=== PATIENT | female | born 1935 | race Caucasian/White ===

== ENCOUNTER 2017-05-01 10:36 | Inpatient (IN) ==
[2017-05-01] MEDS ORDERED: Acetaminophen 325 MG TABLET PO ONE (11:04)
[2017-05-01] MEDS ORDERED: *HR* HYDROcodone/Acet 5/325 mg TABLET PO ONE ×2 (11:04→12:06)
--- NOTE | 2017-05-01 11:07 | Emergency Department Note ---
Disposition Clinical Impression: Fracture of humeral head, left, closed Qualifiers: Encounter type: initial encounter Qualified Code(s): S42.292A - Other displaced fracture of upper end of left humerus, initial encounter for closed fracture Closed fracture of neck of left humerus Qualifiers: Encounter type: initial encounter Qualified Code(s): S42.212A - Unspecified displaced fracture of surgical neck of left humerus, initial encounter for closed fracture Closed nondisplaced fracture of fifth left metatarsal bone Qualifiers: Encounter type: initial encounter Qualified Code(s): S92.355A - Nondisplaced fracture of fifth metatarsal bone, left foot, initial encounter for closed fracture Disposition: Admitted As Inpatient Condition: Fair Time of Disposition: 12:37 Fall HPI - General Chief Complaint: ED Fall Stated Complaint: fall Time Seen by Provider: 05/01/17 10:58 Source: patient, family Nursing Notes Reviewed: Yes Vital Signs Reviewed: Yes - History of Present Illness HPI Narrative: Patient is an 81-year-old female complains of left shoulder pain and left ankle and foot pain secondary to a fall that happened 1.5 hours ago. Patient states she was walking in her kitchen when she rolled her left ankle and fell onto her left shoulder. She has hematoma on the right hand as well that is tender to palpation. Patient states she has a history of osteoporosis and is on aspirin daily. - Related Data Allergies Allergy/AdvReac Type Severity Reaction Status Date / Time No Known Allergies Allergy Verified 05/01/17 12:43 All systems ED: reviewed and negative except as stated. Review of Systems: As Per HPI Constitutional: Denies: fever Eyes: Denies: vision change ENT ED: Denies: congestion Cardiovascular: Denies: chest pain, syncope Respiratory: Denies: cough, dyspnea, wheezes Gastrointestinal: Denies: abdominal pain, nausea Genitourinary: Denies: urgency, dysuria Musculoskeletal: Denies: back pain Fall PMH - Past Medical History Medical history: Reports: diabetes, hyperlipidemia, hypertension - Social History Smoking Status: Never smoker Alcohol use: Reports: none Drug use: Reports: none Physical Exam Vital Signs Temperature 98.4 F 05/01/17 10:36 Pulse Rate 90 05/01/17 10:36 Respiratory Rate 18 05/01/17 10:36 Blood Pressure 148/54 05/01/17 10:36 O2 Sat by Pulse Oximetry 98 05/01/17 10:36 Temperature 98.4 F 05/01/17 10:36 Pulse Rate 90 05/01/17 10:36 Respiratory Rate 18 05/01/17 10:36 Blood Pressure 148/54 05/01/17 10:36 O2 Sat by Pulse Oximetry 98 05/01/17 10:36 Oxygen Delivery Oxygen Delivery Room Air 81-year-old female who is alert and oriented 3 and in no acute distress. Patient is very spunky. Patient has pain to palpation at the left shoulder which shows shows visible malalignment patient has good distal pulses and good range of motion and functionality of left hand when compared to the right hand.. Patient has ecchymosis to the right hand ventral aspect at the base of the thumb. Patient has tenderness at the base of the fifth metacarpal partial left foot. Patient has no rib tenderness to palpation. - General Limitations: no limitations General appearance: alert - Head Head exam: atraumatic, normocephalic, normal inspection - Eye Eye exam: Present: normal appearance, PERRL, EOMI - ENT ENT exam: normal exam, normal oropharynx, mucous membranes moist - Neck Neck exam: Present: normal inspection, full ROM, trachea midline - Chest Chest inspection: Present: normal inspection, symmetric chest wall rise - Respiratory Respiratory exam: Present: normal lung sounds bilaterally - Cardiovascular Cardiovascular exam: Present: regular rate, normal rhythm, normal heart sounds - Abdominal Exam Abdominal exam: Present: soft, Non-Tender. Absent: tenderness, distention, guarding, rebound, rigidity - Expanded Lower Extremity Exam Hip/Pelvis exam: Present: normal inspection, full ROM. Absent: tenderness, swelling - Neurological Exam Neurological exam: Present: alert, oriented X3 Course Vital Signs Temperature 98.4 F 05/01/17 10:36 Pulse Rate 90 05/01/17 10:36 Respiratory Rate 18 05/01/17 10:36 Blood Pressure 148/54 05/01/17 10:36 O2 Sat by Pulse Oximetry 98 05/01/17 10:36 Temperature 98.4 F 05/01/17 10:36 Pulse Rate 80 05/01/17 12:50 Respiratory Rate 20 05/01/17 12:50 Blood Pressure 143/68 05/01/17 12:50 O2 Sat by Pulse Oximetry 98 05/01/17 12:50 Oxygen Delivery Oxygen Delivery Room Air Fall - MDM Narrative Medical decision making narrative: Ground-level fall no loss of consciousness secondary to rolling left ankle: Patient's fracture of left humeral head and neck with 50% displacement. No angulation. Patient also has Stoll fracture of the fifth metatarsal of the left foot. All of the imaging negative for fractures. Pain control initially with 5/325 [place]. The patient pain still 6/10 patient will have a IV started and begin pain control with fentanyl. Plan is for admission after discussion with Dr. Davidson of orthopedics. The patient accepts this is for admission. Patient will be placed in a sling and swath of the left upper extremity and a posterior splint of the left lower extremity. Dr. Taylor the hospitalist who accepted patient for admission at 1233 hrs. - Radiology Data Radiology results reviewed: Yes I reviewed the patient's radiology results. Cervical Spine CT 05/01/17 10:58 IMPRESSION: No acute abnormality of the cervical spine. No acute intracranial abnormality. D/ / Lianne Ding Cha, MD / Lianne Ding Cha, MD Interpreting Provider: Lianne Ding Cha, MD Head CT 05/01/17 10:58 IMPRESSION: No acute abnormality of the cervical spine. No acute intracranial abnormality. D/ / Lianne Ding Cha, MD / Lianne Ding Cha, MD Interpreting Provider: Lianne Ding Cha, MD Ankle X-Ray 05/01/17 10:58 IMPRESSION: Base of 5th metatarsal fracture. Soft tissue edema. Calcaneal spurs. D/ / 05/01/2017 12:07:00 Sunday Forrest MD / chelsey Interpreting Provider: Sunday Forrest MD Cervical Spine CT 05/01/17 10:58 IMPRESSION: No acute abnormality of the cervical spine. No acute intracranial abnormality. D/ / Lianne Ding Cha, MD / Lianne Ding Cha, MD Interpreting Provider: Lianne Ding Cha, MD Hand X-Ray 05/01/17 10:58 IMPRESSION: 1. Osteopenia without fracture. 2. CPPD. 3. Osteoarthritis. D/ / 05/01/2017 12:05:49 Sunday Forrest MD / chelsey Interpreting Provider: Sunday Forrest MD Head CT 05/01/17 10:58 IMPRESSION: No acute abnormality of the cervical spine. No acute intracranial abnormality. D/ / Lianne Ding Cha, MD / Lianne Ding Cha, MD Interpreting Provider: Lianne Ding Cha, MD Humerus X-Ray 05/01/17 10:58 IMPRESSION: Humeral head and neck fracture. D/ / 05/01/2017 12:04:11 Sunday Forrest MD / chelsey Interpreting Provider: Sunday Forrest MD Shoulder X-Ray 05/01/17 10:58 IMPRESSION: Comminuted humeral head and neck fracture. D/ / 05/01/2017 11:59:33 Sunday Forrest MD / vee Interpreting Provider: Sunday Forrest MD Chest X-Ray 05/01/17 11:02 IMPRESSION: No acute cardiopulmonary process. D/ / 05/01/2017 12:03:14 Sunday Forrest MD / chelsey Interpreting Provider: Sunday Forrest MD Attestation Statement - Attestation Attestation: I, John Marrero DO, examined this patient [id number] and my medical decision-making was reviewed with Dr. Anand Huff, Resident Physician. I agree with the documented findings, disposition and treatment plan as described except to the extent set forth below. Please see my progress notes for details. No critical care applied to this patient
[2017-05-01] MEDS ORDERED: *HR* FentaNYL (PF) 100 MCG/2 ML VIAL IVP ONE (12:14)
[2017-05-01] MEDS ORDERED: 0.9 % Sodium Chloride 1,000 ML IVC ONE (12:14)
--- NOTE | 2017-05-01 12:25 | Emergency Department Note ---
START Narrative - START START: 81-year-old female presents emergency room a mechanical fall home. Her left ankle gave out on her when she is walking. Patient fell sideways landing on her left shoulder and hitting her head. She also hurt her right foot. Imaging is confirmatory for humeral head and neck fracture on the left side as well as a Stoll fracture on the right foot. Patient has no acute signs of bleed in the brain or cervical spine injury this time. Patient does live at home by herself. She denies any other preceding symptoms including tachycardia palpitations chest pain shortness of breath headache vision changes nausea vomiting or diarrhea. May concern in presentation as a mechanical fall. Because of the patient's history as well as her home by herself recommendation for admission will be established at this time considering she is unable to walk. No other visible signs of trauma. This time. Patient is on aspirin denies any other blood thinners. Consultation was developed station examiner orthopedics further advice and recommendations. No other acute issues at this time. See detailed documentation of the medical intervention, consultations, disposition, physical exam and admission process and the resident physician's note.
--- NOTE | 2017-05-01 12:59 | Internal Med History&Physical ---
Date of Encounter: 05/01/17 Time of Encounter: 12:56 Assessment and Plan (1) HTN (hypertension) Current visit: Yes Status: Chronic chronic will continue home meds Qualifiers: Hypertension type: essential hypertension Qualified Code(s): I10 - Essential (primary) hypertension (2) Fracture of humeral head, left, closed Current visit: Yes Status: Acute due to accidental fall no syncope or loss of consciousness Qualifiers: Encounter type: initial encounter Qualified Code(s): S42.292A - Other displaced fracture of upper end of left humerus, initial encounter for closed fracture (3) Closed nondisplaced fracture of fifth left metatarsal bone Current visit: Yes Status: Acute ortho yo see later Qualifiers: Encounter type: initial encounter Qualified Code(s): S92.355A - Nondisplaced fracture of fifth metatarsal bone, left foot, initial encounter for closed fracture (4) Diabetes Current visit: Yes Status: Chronic will resume home meds and place on sliding scale Qualifiers: Diabetes mellitus type: type 2 Diabetes mellitus complication status: with unspecified complications Diabetes mellitus 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 Pena is a 81 year old female Patient with history of osteoporosis, hypertension, high cholesterol, diabetes, patient had accidental fall at home and twisted left ankle and then fell landing on left shoulder The patient presented emergency room with pain of the shoulder x-ray shows comminuted humeral head and neck fracture of the left shoulder. Also nondisplaced fracture of the fifth metatarsal. Orthopedic has been spoken to and was to see patient today patient admitted to [facility] Hospital service will be seen by orthopedic surgery. She is not having any chest pain no shortness of breath no palpitation did not have syncope no loss of consciousness. Past Med Surg Social Fam HX - Past Medical History Medical history: diabetes, hyperlipidemia, hypertension - Social History Smoking Status: Never smoker Alcohol use: none Drug use: none Internal Medicine - H&P: Meds Amlodipine Besylate [Amlodipine Besylate] 10 mg PO DAILY 05/01/17 [History] Atorvastatin [Lipitor] 40 mg PO HS 05/01/17 [History] Cetirizine HCl [Cetirizine HCl] 10 mg PO DAILY 05/01/17 [History] Cholecalciferol (Vitamin D3) [Vitamin D] 2,000 unit PO DAILY 05/01/17 [History] Escitalopram [Lexapro] 10 mg PO DAILY 05/01/17 [History] Loratadine [Claritin] 10 mg PO DAILY 05/01/17 [History] Losartan/Hydrochlorothiazide [Losartan-Hctz 100-12.5 mg Tab] 1 tab PO DAILY [History] Omeprazole [PriLOSEC] 40 mg PO DAILY 05/01/17 [History] SitaGLIPtin [Januvia] 100 mg PO DAILY 05/01/17 [History] metFORMIN [Glucophage] 500 mg PO BID 05/01/17 [History] 3 Allergy/AdvReac Type Severity Reaction Status Date / Time No Known Allergies Allergy Verified 05/01/17 12:43 All Systems PM: A 10-system review of systems was performed and is negative for pertinent findings except as documented above in the HPI. - Constitutional Constitutional: no chills, no fever(s), no night sweats - EENT Eyes: no change in vision, no discharge, no pain, no photophobia Ears: no ear discharge, no ear pain, no tinnitus Nose, mouth and throat: no dysphagia, no nasal discharge, no neck pain, no sore throat - Cardiovascular Cardiovascular ROS IM: no chest pain, no diaphoresis, no dyspnea, no lightheadedness, no palpitations, no syncope - Respiratory Respiratory: no cough, no dyspnea, no wheezing, no excessive phlegm production - Gastrointestinal Gastrointestinal: no abdominal pain, no diarrhea, no hematemesis, no hematochezia, no melena, no nausea, no vomiting - Musculoskeletal Musculoskeletal ROS IM: other - Integumentary Integumentary IM: no rash, no unusual bruising - Constitutional Vitals: Temp Pulse Resp BP Pulse Ox 98.4 F 80 20 143/68 98 05/01/17 10:36 05/01/17 12:50 05/01/17 12:50 05/01/17 12:50 05/01/17 12:50 - Eye Eye exam: Present: PERRL, conjuntiva pink, sclera anicteric Pupils: Present: PERRL - Neck Neck exam general surgery: Present: supple, trachea midline. Absent: lymphadenopathy - Respiratory Respiratory exam: Present: CTAB. Absent: accessory muscle use, rales, rhonchi, wheezes - Cardiovascular Cardiovascular exam: Present: RRR, +S1, +S2. Absent: diastolic murmur, gallop, rubs, systolic murmur - GI/Abdominal GI/Abdominal exam: Present: normal bowel sounds, soft, no peritoneal signs. Absent: distended, tenderness - Extremities Exam Extremities exam: Present: tenderness
[2017-05-01] MEDS ORDERED: *HR* Morphine 2 MG/ML SYRINGE IVP PRN (13:06)
[2017-05-01] MEDS ORDERED: *HR* OxyCODONE Immed Rel 5 MG TABLET PO PRN (13:06)
[2017-05-01] MEDS ORDERED: Naloxone 0.4 MG/ML INJ IVP PRN (13:06)
[2017-05-01] MEDS ORDERED: Ondansetron 4 MG/2 ML VIAL IVP PRN (13:06)
[2017-05-01] MEDS ORDERED: *HR* Dextrose 50 % in Water (Syg) 50 ML SYRINGE IVP PRN (13:10)
[2017-05-01] MEDS ORDERED: Dextrose Gel 15 GM PO PRN ×2 (13:10)
[2017-05-01] MEDS ORDERED: D5% in Water 1,000 ML IVC PRN (13:10)
--- NOTE | 2017-05-01 14:55 | Orthopedic Consult Note ---
Date of Encounter: 05/01/17 Time of Encounter: 14:52 Assessment and Plan (1) Fracture of humeral head, left, closed Current Visit: Yes Status: Acute Continue sling and swath. We will discuss with Dr. León in surgical fixation is needed. Qualifiers: Encounter type: initial encounter Qualified Code(s): S42.292A - Other displaced fracture of upper end of left humerus, initial encounter for closed fracture (2) Closed nondisplaced fracture of fifth left metatarsal bone Current Visit: Yes Status: Acute Most likely nonoperative. We will obtain further x-rays today as only ankle x- rays were done. Patient is a diabetic and has a left shoulder mini injury also. May benefit from percutaneous internal fixation. Will discuss with Dr. gaston. Qualifiers: Encounter type: initial encounter Qualified Code(s): S92.355A - Nondisplaced fracture of fifth metatarsal bone, left foot, initial encounter for closed fracture History of Present Illness Chief complaint: Left shoulder and left ankle/foot pain HPI: Ms. Pena is a 81 year old female who states she fell after rolling the left ankle at home this morning. Patient brought to the emergency room. She sustained a left shoulder proximal fracture and also a left foot fifth metatarsal base fracture. Patient says she did hit her head which fell but did not black out. She reports pain to the right hand also. Past medical history significant for diabetes. Past Med Surg Social Fam HX - Past Medical History Medical history: diabetes, hyperlipidemia, hypertension - Social History Smoking Status: Never smoker Alcohol use: none Drug use: none Medications and Allergies Amlodipine Besylate [Amlodipine Besylate] 10 mg PO DAILY 05/01/17 [History] Atorvastatin [Lipitor] 40 mg PO HS 05/01/17 [History] Cetirizine HCl [Cetirizine HCl] 10 mg PO DAILY 05/01/17 [History] Cholecalciferol (Vitamin D3) [Vitamin D] 2,000 unit PO DAILY 05/01/17 [History] Escitalopram [Lexapro] 10 mg PO DAILY 05/01/17 [History] Loratadine [Claritin] 10 mg PO DAILY 05/01/17 [History] Losartan/Hydrochlorothiazide [Losartan-Hctz 100-12.5 mg Tab] 1 tab PO DAILY [History] Omeprazole [PriLOSEC] 40 mg PO DAILY 05/01/17 [History] SitaGLIPtin [Januvia] 100 mg PO DAILY 05/01/17 [History] metFORMIN [Glucophage] 500 mg PO BID 05/01/17 [History] 3 Allergy/AdvReac Type Severity Reaction Status Date / Time No Known Allergies Allergy Verified 05/01/17 12:43 All Systems Reviewed: A 10-system review of systems was performed and is negative for pertinent findings except as documented above in the HPI. Physical Exam - Constitutional Vitals: Temp Pulse Resp BP Pulse Ox 98.4 F 80 18 148/74 98 05/01/17 10:36 05/01/17 12:50 05/01/17 14:24 05/01/17 14:24 05/01/17 12:50 General appearance IM: A&O X 3, pleasant, no acute distress Exam: Head: Normocephalic, mild swelling in forehead but no tenderness no bruising Right upper extremity: Mild bruising and dose most was webspace with tenderness and soft tissue but no no tenderness or bones, full range of motion without pain , distress intact. Left upper extremity: Shoulder immobilizer in place. Neurovascularly intact in hand. Left lower extremity: Posterior splint in place, mild tenderness at lateral aspect of foot Results - Labs Labs: All other labs normal. - Diagnostic results Shoulder x-ray: image reviewed (Displaced proximal humerus fracture) Ankle/Foot x-ray: image reviewed (5th MT base fx) Consult Discharge Plan - Plan Referrals: Deanna Miranda CNP [Primary Care Provider] -
[2017-05-01] MEDS: 0.9 % Sodium Chloride 1,000 ML IVC SCH (15:33)
[2017-05-01] MEDS ORDERED: Insulin LISPRO 300 UNITS/3 ML VIAL SQ SCH (21:00)
[2017-05-02 04:13] LABS: Basophils # 0.1 K/mcL (0.0-0.2); Basophils % 0.8 %; Eosinophils # 0.1 K/mcL (0.0-0.6); Eosinophils % 1.1 %; Hematocrit 31.9 % (35.3-44.9); Hemoglobin 10.4 g/dL (11.5-15.4); Immature Granulocytes % 0.5 % (0-4); Lymphocytes # 2.3 K/mcL (0.6-4.6); Lymphocytes % 28.7 %; Mean Corpuscular HGB Conc 32.6 g/dL (31.6-35.5); Mean Corpuscular Hemoglobin 29.5 pg (28.0-33.3); Mean Corpuscular Volume 90.4 fL (83.0-100.0); Mean Platelet Volume 11.7 fL (9.4-12.4); Monocytes # 0.9 K/mcL (0.0-1.3); Monocytes % 10.8 %; Neutrophils # 4.6 K/mcL (1.6-8.9); Platelet Count 211 K/mcL (140-400); Red Blood Count 3.53 M/mcL (3.82-4.97); Red Cell Distribution Width 13.4 % (11.5-14.5); Segmented Neutrophils % 58.1 %
[2017-05-02 04:23] LABS: Alanine Aminotransferase 21 Units/L (0-55); Albumin/Globulin Ratio 0.9 (1.1-2.2); Alkaline Phosphatase 96 Units/L (38-126); Aspartate Amino Transferase 23 Units/L (5-34); BUN/Creatinine Ratio 20 (6-26); Bilirubin,Total 0.7 mg/dL (0.2-1.2); Blood Urea Nitrogen 15 mg/dL (7-20); Calcium 9.2 mg/dL (8.6-10.8); Carbon Dioxide 22 mEq/L (19-29); Chloride 108 mEq/L (98-109); Cholesterol 117 mg/dL (< 200); Globulin 3.3 g/dL (2.4-3.5); Glucose 121 mg/dL (70-99); HDL Cholesterol 39 mg/dL (40-59); LDL Cholesterol,Calculated 54 mg/dL (0-99); Magnesium 1.5 mg/dL (1.6-2.6); Osmolality,Calculated 290 (280-300); Potassium 3.6 mEq/L (3.5-4.5); Sodium 139 mEq/L (136-145); Total Protein 6.3 g/dL (6.0-8.3); Triglycerides 120 mg/dL (< 150); eGFR For African Americans > 60 (> 60); eGFR For Non-African Americans > 60 (> 60)
[2017-05-02] MEDS: 0.9 % Sodium Chloride 1,000 ML IVC SCH (05:22)
[2017-05-02] MEDS ORDERED: *HR* Enoxaparin 40 MG/0.4 ML SYRINGE SQ SCH (06:00)
--- NOTE | 2017-05-02 06:56 | Orthopedics Progress Note ---
Date of Encounter: 05/02/17 Time of Encounter: 06:55 Subjective Interval history: Patient seen this morning with displaced left proximal humerus fracture. Discussed different treatment options. Recommendation is for open reduction internal fixation. We reviewed the risks and benefits as well as recovery. All questions were answered. The patient agreed to this treatment plan and appeared to understand the plan is reviewed. Objective Vital signs: Vital Signs Temp Pulse Resp BP Pulse Ox 05/02/17 06:23 98.6 F 80 18 152/71 93 05/02/17 03:33 98.9 F 74 18 133/69 97 05/01/17 23:14 99.5 F 82 18 169/72 99 05/01/17 20:07 98.7 F 78 18 159/69 95 05/01/17 15:36 98.5 F 81 18 145/67 97 05/01/17 14:24 18 148/74 Intake and Output 05/01/17 05/01/17 05/02/17 15:59 23:59 07:59 Intake Total 60 / 60 1000 / 1000 Output Total 450 / 450 400 / 400 Balance -390 / -390 600 / 600 Intake: IV Fluids 1000 / 1000 0.9 % Sodium Chloride 1,000 ML 1000 / 1000 @ 75 mls/hr IVC .[id number] SOFIA Rx #:[id number] Oral 60 / 60 Output: Urine 450 / 450 400 / 400 Other: Meal Dinner Percent of Meal Consumed 100% Blood Glucose* 187 125 - Labs CBC & BMP: 05/02/17 03:24 05/02/17 03:24 Labs: Abnormal lab results RBC 3.53 M/mcL (3.82-4.97) L 05/02/17 03:24 Hgb 10.4 g/dL (11.5-15.4) L 05/02/17 03:24 Hct 31.9 % (35.3-44.9) L 05/02/17 03:24 Glucose 121 mg/dL (70-99) H 05/02/17 03:24 POC Glucose 187 (58-89) H 05/01/17 20:11 Magnesium 1.5 mg/dL (1.6-2.6) L 05/02/17 03:24 Albumin 3.0 g/dL (3.5-5.0) L 05/02/17 03:24 Albumin/Globulin Ratio 0.9 (1.1-2.2) L 05/02/17 03:24 HDL Cholesterol 39 mg/dL (40-59) L 05/02/17 03:24 Consult Discharge Plan - Plan Referrals: Deanna Miranda CNP [Primary Care Provider] -
[2017-05-02] MEDS ORDERED: *HR* Morphine 2 MG/ML SYRINGE IVP PRN ×3 (08:19→19:00)
[2017-05-02] MEDS: Insulin LISPRO 300 UNITS/3 ML VIAL SQ SCH ×3 (08:41→23:00)
[2017-05-02] MEDS ORDERED: Loratadine 10 MG TABLET PO SCH ×2 (09:00)
[2017-05-02] MEDS ORDERED: hydroCHLOROthiazide 25 MG TABLET PO SCH (09:00)
[2017-05-02] MEDS ORDERED: *HR* SitaGLIPtin 100 MG TABLET PO SCH (09:00)
[2017-05-02] MEDS ORDERED: Cholecalciferol (D-3) 1,000 UNIT TABLET PO SCH (09:00)
[2017-05-02] MEDS ORDERED: amLODIPine 5 MG TABLET PO SCH (09:00)
--- NOTE | 2017-05-02 09:13 | Internal Med Progress Note ---
<Ana Maria Coles - Last Filed: 05/02/17 15:12> Date of Encounter: 05/02/17 Time of Encounter: 09:10 - Assessment and plan (1) Fracture of humeral head, left, closed Current Visit: Yes Status: Acute Assessment and plan: plan for ORIF by Dr. León today Qualifiers: Encounter type: initial encounter Qualified Code(s): S42.292A - Other displaced fracture of upper end of left humerus, initial encounter for closed fracture (2) Closed fracture of neck of left humerus Current Visit: Yes Status: Acute Qualifiers: Encounter type: initial encounter Qualified Code(s): S42.212A - Unspecified displaced fracture of surgical neck of left humerus, initial encounter for closed fracture (3) Closed nondisplaced fracture of fifth left metatarsal bone Current Visit: Yes Status: Acute Qualifiers: Encounter type: initial encounter Qualified Code(s): S92.355A - Nondisplaced fracture of fifth metatarsal bone, left foot, initial encounter for closed fracture (4) Diabetes Current Visit: Yes Status: Chronic Assessment and plan: On sliding scale with Accu-Cheks Qualifiers: Diabetes mellitus type: type 2 Diabetes mellitus complication status: with unspecified complications Diabetes mellitus exterminator helper termite insulin use: unspecified exterminator helper termite insulin use status Qualified Code(s): E11.8 - Type 2 diabetes mellitus with unspecified complications (5) HTN (hypertension) Current Visit: Yes Status: Chronic Assessment and plan: Chronic, well-controlled Continue home medications Qualifiers: Hypertension type: essential hypertension Qualified Code(s): I10 - Essential (primary) hypertension - Subjective Interval history: Patient is waiting in bed to go to surgery sometime this afternoon. Dr. León has stated he will take her this afternoon if there is a cancellation or else she will go at 5 PM. She has some mild to moderate pain in her shoulder and foot. - Constitutional Vitals: Temp Pulse Resp BP Pulse Ox 98.6 F 80 18 152/71 93 05/02/17 06:23 05/02/17 06:23 05/02/17 06:23 05/02/17 06:23 05/02/17 06:23 General appearance: Present: A&O X 3, no acute distress, answers questions appropriately - Head Head exam: Present: atraumatic, normocephalic - Eye Eye exam: Present: PERRL, conjuntiva pink, sclera anicteric Pupils: Present: PERRL - Neck Neck exam general surgery: Present: supple, trachea midline - Respiratory Respiratory exam: Present: CTAB. Absent: accessory muscle use, rales, rhonchi, wheezes - Cardiovascular Cardiovascular exam: Present: RRR, +S1, +S2. Absent: diastolic murmur, gallop, rubs, systolic murmur - GI/Abdominal GI/Abdominal exam: Present: normal bowel sounds, soft, no peritoneal signs. Absent: distended, tenderness - Extremities Exam Extremities exam: Present: warm. Absent: pedal edema, tenderness Additional comments: Left lower extremity in a posterior splint, toes are warm with good capillary refill: able to wiggle toes Left upper extremity in sling, fingers are warm with good capillary refill: able to wiggle fingers - Neurological Exam Neurological exam: Present: alert, oriented X3 - Psychiatric Psychiatric exam: Present: normal affect, normal mood - Skin Skin exam: Present: intact, normal color, warm Internal Medicine: Result - Labs CBC & Chem 7: 05/02/17 03:24 05/02/17 03:24 Labs: Short CBC 05/02/17 Range/Units 03:24 WBC 7.9 (4.3-11.1) K/mcL Hgb 10.4 L (11.5-15.4) g/dL Hct 31.9 L (35.3-44.9) % Plt Count 211 (140-400) K/mcL Neutrophils # 4.6 (1.6-8.9) K/mcL BMP 05/02/17 03:24 Sodium 139 Potassium 3.6 Chloride 108 Carbon Dioxide 22 BUN 15 Creatinine 0.76 Glucose 121 H Calcium 9.2 Cardiac Enzymes 05/01/17 05/01/17 05/02/17 Range/Units 14:06 21:02 03:24 Troponin I 0.00 0.01 0.01 (0-0.03) ng/mL Liver Function 05/02/17 Range/Units 03:24 Total Bilirubin 0.7 (0.2-1.2) mg/dL AST 23 (5-34) Units/L ALT 21 (0-55) Units/L Alkaline Phosphatase 96 (38-126) Units/L Albumin 3.0 L (3.5-5.0) g/dL - Impressions Impressions Foot X-Ray 05/01/17 14:51 IMPRESSION: Acute transverse extra-articular 5th metatarsal base fracture. D/ / Bob Varghese MD / Bob Varghese MD Interpreting Provider: Bob Varghese MD Consult Discharge Plan - Plan Referrals: Deanna Miranda CNP [Primary Care Provider] - <Jhon Pina - Last Filed: 05/02/17 18:51> Date of Encounter: 05/02/17 - Assessment and plan (1) Closed fracture of neck of left humerus Current Visit: Yes Status: Acute Qualifiers: Encounter type: initial encounter Qualified Code(s): S42.212A - Unspecified displaced fracture of surgical neck of left humerus, initial encounter for closed fracture (2) Closed nondisplaced fracture of fifth left metatarsal bone Current Visit: Yes Status: Acute Qualifiers: Encounter type: initial encounter Qualified Code(s): S92.355A - Nondisplaced fracture of fifth metatarsal bone, left foot, initial encounter for closed fracture (3) Diabetes Current Visit: Yes Status: Chronic Qualifiers: Diabetes mellitus type: type 2 Diabetes mellitus complication status: without complication Diabetes mellitus exterminator helper termite insulin use: without exterminator helper termite use Qualified Code(s): E11.9 - Type 2 diabetes mellitus without complications (4) HTN (hypertension) Current Visit: Yes Status: Chronic Qualifiers: Hypertension type: essential hypertension Qualified Code(s): I10 - Essential (primary) hypertension - Constitutional Vitals: Temp Pulse Resp BP Pulse Ox 99.6 F 97 18 155/76 96 05/02/17 14:57 05/02/17 17:13 05/02/17 14:57 05/02/17 17:13 05/02/17 17:13 Internal Medicine: Result - Labs CBC & Chem 7: 05/02/17 03:24 05/02/17 03:24 Labs: Short CBC 05/02/17 Range/Units 03:24 WBC 7.9 (4.3-11.1) K/mcL Hgb 10.4 L (11.5-15.4) g/dL Hct 31.9 L (35.3-44.9) % Plt Count 211 (140-400) K/mcL Neutrophils # 4.6 (1.6-8.9) K/mcL BMP 05/02/17 03:24 Sodium 139 Potassium 3.6 Chloride 108 Carbon Dioxide 22 BUN 15 Creatinine 0.76 Glucose 121 H Calcium 9.2 Cardiac Enzymes 05/01/17 05/02/17 Range/Units 21:02 03:24 Troponin I 0.01 0.01 (0-0.03) ng/mL Liver Function 05/02/17 Range/Units 03:24 Total Bilirubin 0.7 (0.2-1.2) mg/dL AST 23 (5-34) Units/L ALT 21 (0-55) Units/L Alkaline Phosphatase 96 (38-126) Units/L Albumin 3.0 L (3.5-5.0) g/dL - Attending Attestation I examined this patient and my medical decision-making was reviewed with the Resident Physician on 05/02/17. I agree with the documented findings, disposition and treatment plan as described except to the extent set forth below. Ms Pena is currently admitted for acute humeral fracture and fracture of 5th metatarsel. She is to go to OR today. She remains moderate to high risk due to potential for worsening clinical status. Ms ePna is awaiting surgery. No fever or chills. No cough. Pain controlled at this time. Exam Alert. Comfortable Mucus membranes dry Heart reg Lungs clear I/P 1. Humeral fracture 2. Metatarsel fracture Further diagnoses and plan as above.
--- NOTE | 2017-05-02 16:27 | Anesthesia Evaluation PreOp ---
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 History: TIA Other Medical History: Diabetes Type II, GERD Anesthesia History: No Prior Anesthetic Complications, Past Anesthesia Alcohol Use: none Drug use: none Medications and Allergies Amlodipine Besylate [Amlodipine Besylate] 10 mg PO DAILY 05/01/17 [History] Atorvastatin [Lipitor] 40 mg PO HS 05/01/17 [History] Cetirizine HCl [Cetirizine HCl] 10 mg PO DAILY 05/01/17 [History] Cholecalciferol (Vitamin D3) [Vitamin D] 2,000 unit PO DAILY 05/01/17 [History] Escitalopram [Lexapro] 10 mg PO DAILY 05/01/17 [History] Loratadine [Claritin] 10 mg PO DAILY 05/01/17 [History] Losartan/Hydrochlorothiazide [Losartan-Hctz 100-12.5 mg Tab] 1 tab PO DAILY [History] Omeprazole [PriLOSEC] 40 mg PO DAILY 05/01/17 [History] SitaGLIPtin [Januvia] 100 mg PO DAILY 05/01/17 [History] metFORMIN [Glucophage] 500 mg PO BID 05/01/17 [History] 3 Allergy/AdvReac Type Severity Reaction Status Date / Time No Known Allergies Allergy Verified 05/01/17 12:43 - Meds/Allergy Pre-op Review Medications Reviewed: Yes Allergies Reviewed: Yes Beta Blockers on Current Med List: No Anesthesia Results - Labs 05/02/17 03:24 05/02/17 03:24 - Imaging EKG: report reviewed (05/02/2017 SR, NSST abnormality) Additional studies: 09/15/2012 Echo Impressions: * Normal left ventricular size and systolic function. * LVEF 65% * There is evidence of mild diastolic dysfunction of the left ventricle. * Normal right ventricular size and function. * Mildly dilated left atrium. * Trivial MR and TR. * The estimated RVSP was 27 mmHg as estimated by Doppler. * There is no pulmonary hypertension. Anesthesia Exam Vital Signs/O2 Sat/Glucose, Most Recent Temp Pulse Resp BP Pulse Ox 99.6 F 77 18 153/73 97 05/02/17 14:57 05/02/17 14:57 05/02/17 14:57 05/02/17 14:57 05/02/17 14:57 Blood Glucose* 123 Height: 5'2''/1.57 m Weight: 170 lbs/77 kg NPO (# of Hours): 8 Pain Scale: 0 Pain Scale Used: Numeric (1 - 10) - HEENT Pupil (Motor): EOMI Mallampati: II Teeth: Normal, Missing Denture Type: Upper: Complete Oral Opening: Greater than 3 - WHITING MACHINE OPERATOR LOC: Oriented WHITING MACHINE OPERATOR Motor: Normal RUE, Normal LUE, Normal RLE, Normal LLE, Normal Face WHITING MACHINE OPERATOR Sensory: Normal: RUE, LUE, RLE, LLE, Face - Cardiac Rhythm: Regular Murmur: None - Pulmonary Breath Sounds: bilateral Clear Respiratory Effort: Symmetrical Anesthesia Assess/Plan ASA Score: 3 Modified Ivelisse Scale for Level of Consciousness: Cooperative, oriented, and tranquil Anesthetic Plan: General, Regional Monitoring Plan: Standard Monitors Recovery Plan: PACU
[2017-05-02] MEDS ORDERED: *HR* Midazolam HCl 2 MG/2 ML VIAL ONE (16:36)
[2017-05-02] MEDS ORDERED: *HR* FentaNYL (PF) 100 MCG/2 ML VIAL ONE ×2 (16:36→16:45)
[2017-05-02] MEDS ORDERED: *HR* Propofol 200 MG/20 ML VIAL IVP ONE (16:36)
[2017-05-02] MEDS ORDERED: Dexamethasone 4 MG/ML VIAL ONE ×2 (16:36→16:45)
[2017-05-02] MEDS ORDERED: Ondansetron 4 MG/2 ML VIAL ONE (16:36)
[2017-05-02] MEDS ORDERED: Lidocaine -MPF 2% 2 ML VIAL ONE (16:36)
[2017-05-02] MEDS ORDERED: ROPIVACAINE HCL/PF 0.5% 30 ML VIAL ONE (16:43)
[2017-05-02] MEDS ORDERED: CeFAZolin Syringe 2,000MG/20 ML SYR IVPB ONE (16:51)
--- NOTE | 2017-05-02 17:17 | Anesthesia Procedures ---
Date of Encounter: 05/02/17 Time of Encounter: 17:00 Procedures: Anesthesia - Nerve Block Procedure Date: 05/02/17 Time: 17:00 Allergies/Adv Reactions: NKDA Pre-op Diagnosis: Fractured Left Humerous Surgical Procedure: Left Shoulder ORIF Checklist: Correct Patient Identifier, Correct procedure, History checked Correct side: Left Blood Thinner: No Monitor Applied: EKG, BP, Pulse Oximetry Supplemental Oxygen via Nasal Cannula (L/min): 2 Sedation: Fentanyl (mcg): 100 Indication: Post Op Analgesia Pre-op Neuro Deficits: No Block Type: Supraclavicular Catheter placed: No Sterile Technique: Yes Ultrasound used: Yes Anatomy identified: Yes Visual spread of Local: Yes Neuro Stimulation: No Blood on Needle Aspiration: No Smooth Injection of Local: Yes Pain with Injection of Local: No Prep: Chlorhexadine Needle: 22 x 50 mm Stimuplex Local: Ropivacaine (with decadron 4mg) Volume (cc): 30 Number of Attempts: 1 Complications: None/effective block Vitals: Last Vital Signs Temp 99.6 F 05/02/17 14:57 Pulse 97 05/02/17 17:13 Resp 18 05/02/17 14:57 BP 155/76 05/02/17 17:13 Pulse Ox 96 05/02/17 17:13
[2017-05-02] MEDS ORDERED: CeFAZolin Syr 2,000MG/20 ML 2,000 MG/20 ML SYRINGE IVPB ONE (17:24)
[2017-05-02] MEDS ORDERED: EPHEDrine 50 MG/ML VIAL ONE (17:36)
[2017-05-02] MEDS ORDERED: Albuterol 2.5 MG/3 ML NEBULIZER IH ONE (17:45)
[2017-05-02] MEDS ORDERED: Ondansetron 4 MG/2 ML VIAL IVP ONE (17:45)
[2017-05-02] MEDS ORDERED: Ringers Solution, Lactated 1,000 ML IVC SCH ×2 (17:45→19:00)
[2017-05-02] MEDS ORDERED: Naloxone 0.4 MG/ML INJ IVP PRN ×2 (17:45→19:00)
[2017-05-02] MEDS ORDERED: *HR* HYDROmorphone (PF) 1 MG/ML SYRINGE IVP PRN (17:45)
--- NOTE | 2017-05-02 18:13 | Orthopedic Operative Note ---
Date of procedure: 05/02/17 Pre-op diagnosis: Displaced left proximal humerus fracture Post-op diagnosis: same Procedure: Procedure: Left open reduction internal fixation Humerus proximal humerus Estimated blood loss: 50 cc Hardware: Synthes 3-hole proximal humeral locking plate, 9 3.5 Locking screws Operative procedure: The patient was brought to the operating room and placed on the operating room table. After general anesthesia was administered the operative arm was prepped and draped in the sterile surgical fashion The patient received IV antibiotics prior to skin incision. A standard extended deltopectoral approach was made to the humerus, the incision is made to the skin and subcutaneous tissue. Hemostasis was obtained with Bovie cautery. Using careful blunt dissection the deltopectoral interval was developed, exposing the fracture site. Using fluoroscopic assistance a Synthes 3-hole proximal humeral locking plate was approximated to the anterior lateral surface was fixed distally in compression with one 3.5 cortical screw. It was fixed proximally with 3.5 locking screws. Fixation was completed with distal fixation with 3.5 locking screws. The compression screw was exchanged for a locking screw as well. Position of the hardware as well as fracture reduction found to be acceptable on fluoroscopic exam evaluation. The PA closed the shoulder. The wound was irrigated the deltopectoral closed with a running #1 PDS suture case tissues irrigated and closed deep with 0 PDS suture superficially with 0 PDS suture was closed with zip tie patient was sterile dressing and brace. The patient was extubated, and then transferred to the recovery room in stable condition. Anesthesia: GETA Surgeon: Julio León Estimated blood loss (cc): 50 Condition: stable Disposition: PACU
[2017-05-02] MEDS ORDERED: Ringers Solution, Lactated 1,000 ML ONE (18:42)
--- NOTE | 2017-05-02 18:51 | Anesthesia Evaluation Post Op ---
Date of Encounter: 05/02/17 Time of Encounter: 18:51 - Vital Signs Vital Signs: Vital Signs/O2 Sat, Most Current Temp Pulse Resp BP Pulse Ox 99.6 F 97 18 155/76 96 05/02/17 14:57 05/02/17 17:13 05/02/17 14:57 05/02/17 17:13 05/02/17 17:13 - Lungs Lungs: Clear Ascult./Percussion - Airway Airway: Non-obstructed - Cardiovascular Regular Rate - Mental Status Mental Status: Alert & Oriented, Answers Appropriately - Pain Pain Scale: 0 Pain Scale used: Numeric (1 - 10) - Nausea Vomiting Nausea Vomiting: Not Present - Hydration Hydration: Ice chips, Has not voided - Discharge PostOp Status: Transfer Patient to floor
[2017-05-02] MEDS ORDERED: Temazepam 15 MG CAPSULE PO PRN (19:00)
[2017-05-02] MEDS ORDERED: D5% in Water 1,000 ML IVC PRN (19:00)
[2017-05-02] MEDS ORDERED: MOM Conc 10 ML UD.LIQ PO PRN (19:00)
[2017-05-02] MEDS ORDERED: Sennosides 8.6 MG TABLET PO PRN (19:00)
[2017-05-02] MEDS ORDERED: Dextrose Gel 15 GM PO PRN ×2 (19:00)
[2017-05-02] MEDS ORDERED: *HR* Dextrose 50 % in Water (Syg) 50 ML SYRINGE IVP PRN (19:00)
[2017-05-02] MEDS ORDERED: Ondansetron 4 MG/2 ML VIAL IVP PRN (19:00)
[2017-05-02 19:02] LABS: Hematocrit 33.7 % (35.3-44.9); Hemoglobin 11.1 g/dL (11.5-15.4)
[2017-05-02] MEDS: CeFAZolin Premix DUPLEX 2,000 MG/50 ML BAG IVPB SCH (22:57)
[2017-05-03] MEDS: *HR* Enoxaparin 40 MG/0.4 ML SYRINGE SQ SCH (05:08)
--- NOTE | 2017-05-03 06:58 | Orthopedics Progress Note ---
Date of Encounter: 05/03/17 Time of Encounter: 06:57 Subjective Interval history: Patient was seen this morning doing well without complaints. Afebrile vital signs stable. Operative extremity: Neurovascularly intact Dressing clean dry and intact Calves nontender Assessment and plan: Continue with postoperative care Okay for discharge. Objective Vital signs: Vital Signs Temp Pulse Resp BP Pulse Ox 05/03/17 04:12 97.9 F 79 113/57 95 05/02/17 23:31 98.1 F 78 16 121/59 92 05/02/17 22:20 98.4 F 74 16 129/76 95 05/02/17 21:20 98.5 F 68 16 124/76 96 05/02/17 20:20 98.2 F 78 14 120/78 95 05/02/17 19:50 98.5 F 86 16 124/59 95 05/02/17 19:20 99.6 F 83 18 138/68 92 05/02/17 19:09 98.9 F 81 16 112/60 100 05/02/17 18:59 98.1 F 86 16 132/63 100 05/02/17 18:49 85 16 131/53 100 05/02/17 18:39 85 16 129/62 100 05/02/17 18:29 98.1 F 105 14 142/99 98 05/02/17 17:13 97 155/76 96 05/02/17 17:01 86 173/77 97 05/02/17 14:57 99.6 F 77 18 153/73 97 05/02/17 10:57 99.0 F 95 20 145/70 94 Intake and Output 05/02/17 05/02/17 05/03/17 15:59 23:59 07:59 Output Total 50 / 50 300 / 300 Balance -50 / -50 -300 / -300 Output: Urine 300 / 300 Estimated Blood Loss 50 / 50 Other: # Voids 1 Blood Glucose* 123 223 - Labs CBC & BMP: 05/02/17 18:47 05/02/17 03:24 Labs: Abnormal lab results RBC 3.53 M/mcL (3.82-4.97) L 05/02/17 03:24 Hgb 11.1 g/dL (11.5-15.4) L 05/02/17 18:47 Hct 33.7 % (35.3-44.9) L 05/02/17 18:47 Glucose 121 mg/dL (70-99) H 05/02/17 03:24 POC Glucose 223 (58-89) H 05/02/17 23:36 Magnesium 1.5 mg/dL (1.6-2.6) L 05/02/17 03:24 Albumin 3.0 g/dL (3.5-5.0) L 05/02/17 03:24 Albumin/Globulin Ratio 0.9 (1.1-2.2) L 05/02/17 03:24 HDL Cholesterol 39 mg/dL (40-59) L 05/02/17 03:24 - VTE Documentation of Mechanical Device: Venous foot pump, device Consult Discharge Plan - Plan Referrals: Deanna Miranda CNP [Primary Care Provider] -
[2017-05-03 07:07] LABS: Basophils % 0.1 %; Hematocrit 29.6 % (35.3-44.9); Hemoglobin 9.7 g/dL (11.5-15.4); Immature Granulocytes % 0.6 % (0-4); Lymphocytes # 0.7 K/mcL (0.6-4.6); Lymphocytes % 10.1 %; Mean Corpuscular HGB Conc 32.8 g/dL (31.6-35.5); Mean Corpuscular Hemoglobin 29.8 pg (28.0-33.3); Mean Corpuscular Volume 91.1 fL (83.0-100.0); Mean Platelet Volume 11.3 fL (9.4-12.4); Monocytes # 0.4 K/mcL (0.0-1.3); Monocytes % 5.5 %; Platelet Count 164 K/mcL (140-400); Red Blood Count 3.25 M/mcL (3.82-4.97); Red Cell Distribution Width 13.2 % (11.5-14.5); Segmented Neutrophils % 83.7 %
[2017-05-03 07:25] LABS: BUN/Creatinine Ratio 17 (6-26); Blood Urea Nitrogen 14 mg/dL (7-20); Calcium 9.2 mg/dL (8.6-10.8); Carbon Dioxide 22 mEq/L (19-29); Chloride 107 mEq/L (98-109); Glucose 203 mg/dL (70-99); Magnesium 1.6 mg/dL (1.6-2.6); Osmolality,Calculated 296 (280-300); Phosphorous 3.3 mg/dL (2.3-4.7); Potassium 3.6 mEq/L (3.5-4.5); Sodium 140 mEq/L (136-145); eGFR For African Americans > 60 (> 60); eGFR For Non-African Americans > 60 (> 60)
[2017-05-03] MEDS: Loratadine 10 MG TABLET PO SCH (08:50)
[2017-05-03] MEDS: Cholecalciferol (D-3) 1,000 UNIT TABLET PO SCH (08:50)
[2017-05-03] MEDS: *HR* SitaGLIPtin 25 MG TABLET PO SCH (08:51)
[2017-05-03] MEDS: amLODIPine 5 MG TABLET PO SCH (08:51)
[2017-05-03] MEDS: CeFAZolin Premix DUPLEX 2,000 MG/50 ML BAG IVPB SCH (08:51)
[2017-05-03] MEDS: hydroCHLOROthiazide 25 MG TABLET PO SCH (08:51)
[2017-05-03] MEDS: Insulin LISPRO 300 UNITS/3 ML VIAL SQ SCH ×4 (08:52→20:50)
[2017-05-03] MEDS ORDERED: *HR* SitaGLIPtin 25 MG TABLET PO SCH (09:00)
--- NOTE | 2017-05-03 10:20 | Internal Med Progress Note ---
<Ana Maria Coles - Last Filed: 05/03/17 12:44> Date of Encounter: 05/03/17 Time of Encounter: 10:18 - Assessment and plan (1) Fracture of humeral head, left, closed Current Visit: Yes Status: Acute Assessment and plan: s/p ORIF by Dr. León 05/02 Needs evaluation by PT/OT Plan for discharge to ECF Qualifiers: Encounter type: initial encounter Qualified Code(s): S42.292A - Other displaced fracture of upper end of left humerus, initial encounter for closed fracture (2) Closed fracture of neck of left humerus Current Visit: Yes Status: Acute Qualifiers: Encounter type: initial encounter Qualified Code(s): S42.212A - Unspecified displaced fracture of surgical neck of left humerus, initial encounter for closed fracture (3) Closed nondisplaced fracture of fifth left metatarsal bone Current Visit: Yes Status: Acute Qualifiers: Encounter type: initial encounter Qualified Code(s): S92.355A - Nondisplaced fracture of fifth metatarsal bone, left foot, initial encounter for closed fracture (4) Diabetes Current Visit: Yes Status: Chronic Assessment and plan: sliding scale with Accu-Cheks Qualifiers: Diabetes mellitus type: type 2 Diabetes mellitus complication status: without complication 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 She states that her left foot feels much better. - Constitutional Vitals: Temp Pulse Resp BP Pulse Ox 98.6 F 71 16 131/54 94 05/03/17 06:00 05/03/17 06:00 05/03/17 06:00 05/03/17 06:00 05/03/17 06:00 General appearance: Present: A&O X 3, no acute distress, answers questions appropriately - Head Head exam: Present: atraumatic, normocephalic - Eye Eye exam: Present: PERRL, conjuntiva pink, sclera anicteric Pupils: Present: PERRL - Neck Neck exam general surgery: Present: supple, trachea midline. Absent: lymphadenopathy - Respiratory Respiratory exam: Present: CTAB. Absent: accessory muscle use, rales, rhonchi, wheezes - Cardiovascular Cardiovascular exam: Present: RRR, +S1, +S2, systolic murmur - GI/Abdominal GI/Abdominal exam: Present: normal bowel sounds, soft, no peritoneal signs. Absent: distended, tenderness - Extremities Exam Additional comments: Left arm in postsurgery sling, left shoulder with postsurgical dressing - clean , dry, intact; left lower extremity and walking boot; right lower extremity no pedal edema, warm, no tenderness, posterior tibial pulse +2/4 - Neurological Exam Neurological exam: Present: CN II-XII intact, oriented X3, no focal deficits. Absent: pronater drift, facial droop, speech deficit - Skin Skin exam: Present: dry, intact Internal Medicine: Result - Labs CBC & Chem 7: 05/03/17 06:55 05/03/17 06:55 Labs: Short CBC 05/02/17 05/03/17 Range/Units 18:47 06:55 WBC 7.1 (4.3-11.1) K/mcL Hgb 11.1 L 9.7 L (11.5-15.4) g/dL Hct 33.7 L 29.6 L (35.3-44.9) % Plt Count 164 (140-400) K/mcL Neutrophils # 6.0 (1.6-8.9) K/mcL BMP 05/03/17 06:55 Sodium 140 Potassium 3.6 Chloride 107 Carbon Dioxide 22 BUN 14 Creatinine 0.82 Glucose 203 H Calcium 9.2 - Impressions Impressions Shoulder X-Ray 05/02/17 17:17 IMPRESSION: Status post ORIF for a closed comminuted left humeral neck fracture. D/ / 05/02/2017 19:57:23 Rick Bell MD / jeanie Interpreting Provider: Rick Bell MD - VTE Documentation of Mechanical Device: Venous foot pump, device Consult Discharge Plan - Plan Referrals: Deanna Miranda CNP [Primary Care Provider] - <Augustine Gracia - Last Filed: 05/03/17 16:55> Date of Encounter: 05/03/17 - Constitutional Vitals: Temp Pulse Resp BP Pulse Ox 98.0 F 84 20 167/73 93 05/03/17 14:16 05/03/17 14:16 05/03/17 14:16 05/03/17 14:16 05/03/17 14:16 Internal Medicine: Result - Labs CBC & Chem 7: 05/03/17 06:55 05/03/17 06:55 Labs: Short CBC 05/02/17 05/03/17 Range/Units 18:47 06:55 WBC 7.1 (4.3-11.1) K/mcL Hgb 11.1 L 9.7 L (11.5-15.4) g/dL Hct 33.7 L 29.6 L (35.3-44.9) % Plt Count 164 (140-400) K/mcL Neutrophils # 6.0 (1.6-8.9) K/mcL BMP 05/03/17 06:55 Sodium 140 Potassium 3.6 Chloride 107 Carbon Dioxide 22 BUN 14 Creatinine 0.82 Glucose 203 H Calcium 9.2 - Impressions Impressions Shoulder X-Ray 05/02/17 17:17 IMPRESSION: Status post ORIF for a closed comminuted left humeral neck fracture. D/ / 05/02/2017 19:57:23 Rick Bell MD / jeanie Interpreting Provider: Rick Bell MD Fluoroscopy 05/02/17 17:37 IMPRESSION: Intraprocedural fluoroscopic spot images as above. See separate procedure report for more information. D/ / José Manuel Eldridge MD / José Manuel Eldridge MD Interpreting Provider: José Manuel Eldridge MD Humerus X-Ray 05/02/17 17:37 IMPRESSION: Intraprocedural fluoroscopic spot images as above. See separate procedure report for more information. D/ / José Manuel Eldridge MD / José Manuel Eldridge MD Interpreting Provider: José Manuel Eldridge MD - Attending Attestation I conducted a face to face diagnostic evaluation of this patient and my medical decision-making was reviewed with the Resident Physician, Dr Ana Maria Coles. I agree with the documented findings, disposition and treatment plan as described except to the extent set forth below: Patient is status post ORIF of the left humerus. Shoulder pain is adequately controlled. On exam she is in no acute distress. Heart is regular. Lungs are clear. Plan: Continue postop care. PT OT. Disposition planning to ECF. All listed medical problems are new to me today. Augustine Garcia MD
--- NOTE | 2017-05-03 16:33 | Electrocardiograph Report ---
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
[2017-05-03] MEDS: *HR* OxyCODONE Immed Rel 5 MG TABLET PO PRN (20:39)
[2017-05-04] MEDS: *HR* Enoxaparin 40 MG/0.4 ML SYRINGE SQ SCH (06:10)
[2017-05-04] MEDS: Insulin LISPRO 300 UNITS/3 ML VIAL SQ SCH ×2 (09:23→13:02)
[2017-05-04] MEDS: hydroCHLOROthiazide 25 MG TABLET PO SCH (09:30)
[2017-05-04] MEDS: Cholecalciferol (D-3) 1,000 UNIT TABLET PO SCH (09:30)
[2017-05-04] MEDS: *HR* SitaGLIPtin 25 MG TABLET PO SCH (09:32)
[2017-05-04] MEDS: Loratadine 10 MG TABLET PO SCH (09:32)
[2017-05-04] MEDS: amLODIPine 5 MG TABLET PO SCH (09:32)
--- NOTE | 2017-05-04 10:15 | Discharge Summary ---
<Mitch Elaine - Last Filed: 05/04/17 15:59> Date of Encounter: 05/04/17 Time of Encounter: 10:12 - Discharge Diagnosis (1) Fracture of humeral head, left, closed Priority: Primary Status: Acute Qualifiers: Encounter type: initial encounter Qualified Code(s): S42.292A - Other displaced fracture of upper end of left humerus, initial encounter for closed fracture (2) Closed fracture of neck of left humerus Priority: Secondary Status: Acute Qualifiers: Encounter type: initial encounter Qualified Code(s): S42.212A - Unspecified displaced fracture of surgical neck of left humerus, initial encounter for closed fracture (3) Closed nondisplaced fracture of fifth left metatarsal bone Priority: Secondary Status: Acute Qualifiers: Encounter type: initial encounter Qualified Code(s): S92.355A - Nondisplaced fracture of fifth metatarsal bone, left foot, initial encounter for closed fracture (4) HTN (hypertension) Priority: Secondary Status: Chronic Qualifiers: Hypertension type: essential hypertension Qualified Code(s): I10 - Essential (primary) hypertension (5) Diabetes Priority: Secondary Status: Chronic Qualifiers: Diabetes mellitus type: type 2 Diabetes mellitus complication status: without complication Diabetes mellitus senior care insulin use: without senior care use Qualified Code(s): E11.9 - Type 2 diabetes mellitus without complications - Discharge Medications Prescriptions: Docusate [Colace] 100 mg PO BID #30 capsule OxyCODONE Immed Rel [Roxicodone 5 MG] 5 mg PO Q6H PRN #28 tablet PRN Reason: Moderate Pain (4-6) Home Medications: Amlodipine Besylate 10 mg PO DAILY 05/01/17 [History] Atorvastatin [Lipitor] 40 mg PO HS 05/01/17 [History] Cetirizine HCl 10 mg PO DAILY 05/01/17 [History] Cholecalciferol (Vitamin D3) [Vitamin D3] 2,000 unit PO DAILY 05/01/17 [History] Escitalopram [Lexapro] 10 mg PO DAILY 05/01/17 [History] Loratadine [Claritin] 10 mg PO DAILY 05/01/17 [History] Losartan/Hydrochlorothiazide [Losartan-Hctz 100-12.5 mg Tab] 1 tab PO DAILY [History] Omeprazole [PriLOSEC] 40 mg PO DAILY 05/01/17 [History] SitaGLIPtin [Januvia] 100 mg PO DAILY 05/01/17 [History] metFORMIN [Glucophage] 500 mg PO BID 05/01/17 [History] Docusate [Colace] 100 mg PO BID #30 capsule 05/04/17 [Rx] OxyCODONE Immed Rel [Roxicodone 5 MG] 5 mg PO Q6H PRN #28 tablet 05/04/17 [Rx] Allergies/Adverse Reactions: 3 Allergy/AdvReac Type Severity Reaction Status Date / Time No Known Allergies Allergy Verified 05/01/17 12:43 Procedures/tests Complete & Pending: Procedures Performed prior 72 hours Category Date Time Status ECG 12 lead ECG [ECG] Routine Y 05/02/17 16:47 Completed Date of admission: 05/01/17 13:06 Primary care physician: Deanna Miranda CNP Consults: 05/01/17 15:19 Consult to Pastoral Services [CONS] Routine Comment: DISCHARGE PLANNING 05/02/17 19:00 Consult to Occupational Therapy [CONS] Routine Comment: post shoulder surgery Reason for Consult: post shoulder surgery Consult to Physical Therapy [CONS] Routine Comment: post shoulder surgery Reason for Consult: post shoulder surgery RT Post Op Consult [CONS] Routine 05/03/17 07:38 Consult to Network Lead [CONS] Routine Reason for SW Consult: placement; post shoulder surgery Discharging clinician: Mitch Elaine Anticipated date of discharge: 05/04/17 - Patient Status Disposition: Transfer SNF Condition: Fair Functional capacity at discharge: uses cane/walker Overall status at discharge: patient is progressing back to baseline - Discharge Instructions Follow Up With: Deanna Miranda CNP [Primary Care Provider] - [facility] [Provider Group] Additional Instructions: Please follow up with your PCP within 1 week of discharge Follow up with orthopedic surgeon with 2 weeks of discharge - Diet and Activity Activity: increase activity as tolerated Diet: diabetic diet Hospital course: Ms. Pena is a 81 year old female who presented to the ED after sustaining a fall at home where she twisted her left ankle and landed on her left shoulder. X -ray demonstrated comminuted humeral head and neck fracture of the left shoulder and also nondisplaced fracture of the fifth metatarsal. Ortho was consulted and performed Left open reduction internal fixation humerus proximal humerus on 05/02. PT/OT did evaluate patient as she does live alone and recommended that she go to ECF upon discharge for short term rehab, which she agreed to. Her information was sent to [facility], which was patient's ideal choice. Patient did well with pain control post-operatively with her moderate analgesic regimen and will be going home on short course of Roxicodone along with stool softeners. Per ortho, her instructions upon discharge when going to ECF are as follows: Continue to keep hand in upright position in brace to decrease swelling. Continue hand and wrist ROM, no shoulder or elbow ROM. NWB to LUE. Continue to wear cam walker boot to left foot for 5th metatarsal fx, WBAT. Will follow up with Dr. Sánchez in 1 week. - Time Spent with Patient Total time spent providing and/or coordinating discharge services: Greater than 30 minutes - Constitutional Vitals: Temp Pulse Resp BP Pulse Ox 98.2 F 87 16 134/76 99 05/04/17 06:29 05/04/17 06:29 05/04/17 06:29 05/04/17 06:29 05/04/17 06:29 General appearance: Present: cooperative, no acute distress, answers questions appropriately - Head Head exam: Present: atraumatic, normocephalic - Eye Eye exam: Present: PERRL, conjuntiva pink, sclera anicteric - Neck Neck exam general surgery: Present: supple, trachea midline. Absent: lymphadenopathy - Respiratory Respiratory exam: Present: CTAB. Absent: accessory muscle use, rales, rhonchi, wheezes - Cardiovascular Cardiovascular exam: Present: RRR, +S1, +S2. Absent: diastolic murmur, gallop, rubs, systolic murmur - GI/Abdominal GI/Abdominal exam: Present: normal bowel sounds, soft, no peritoneal signs. Absent: distended, tenderness - Extremities Exam Extremities exam: Present: tenderness (in LUQ s/p surgery), warm, radial pulses palpable and symmetrical. Absent: calf tenderness, cyanotic, pedal edema - Neurological Exam Neurological exam: Present: alert, no focal deficits. Absent: pronater drift, facial droop, speech deficit - Skin Skin exam: Present: dry, intact - VTE Documentation of Mechanical Device: Venous foot pump, device <Augustine Garcia - Last Filed: 05/04/17 18:41> Date of Encounter: 05/04/17 Procedures/tests Complete & Pending: Procedures Performed prior 72 hours Category Date Time Status ECG 12 lead ECG [ECG] Routine Y 05/02/17 16:47 Completed Date of admission: 05/01/17 13:06 Primary care physician: Deanna Miranda CNP Consults: 05/01/17 15:19 Consult to Pastoral Services [CONS] Routine Comment: DISCHARGE PLANNING 05/02/17 19:00 Consult to Occupational Therapy [CONS] Routine Comment: post shoulder surgery Reason for Consult: post shoulder surgery Consult to Physical Therapy [CONS] Routine Comment: post shoulder surgery Reason for Consult: post shoulder surgery RT Post Op Consult [CONS] Routine 05/03/17 07:38 Consult to Network Lead [CONS] Routine Reason for SW Consult: placement; post shoulder surgery Hospital course: Ms. Pena is a 81 year old female - Time Spent with Patient Total time spent providing and/or coordinating discharge services: - Constitutional Vitals: Temp Pulse Resp BP Pulse Ox 98.7 F 78 16 142/76 99 05/04/17 14:15 05/04/17 14:15 05/04/17 14:15 05/04/17 14:15 05/04/17 14:15 - Attending Attestation I conducted a face to face diagnostic evaluation of this patient and my medical decision-making was reviewed with the Resident Physician, Dr Mitch Elaine. I agree with the documented findings, disposition and treatment plan as described except to the extent set forth below: Left shoulder pain well controlled with oral pain medication. Heart is regular S1 and S2. Lungs are clear. Extremities with no edema. Plan discharge to subacute rehabilitation. Augustine Garcia MD
--- NOTE | 2017-05-04 10:17 | Physician Discharge Referral ---
ExtendedCare Referral Info Transfer To: [facility] Provider in Charge: Dr. Garcia Provider in Charge after Transfer: PCP Institutional Level of Care: Skilled - Diagnosis (1) Fracture of humeral head, left, closed Priority: Primary Status: Acute (2) Closed fracture of neck of left humerus Priority: Secondary Status: Acute (3) Closed nondisplaced fracture of fifth left metatarsal bone Priority: Secondary Status: Acute (4) HTN (hypertension) Priority: Secondary Status: Chronic (5) Diabetes Priority: Secondary Status: Chronic - Transfer Medications Prescriptions: Docusate [Colace] 100 mg PO BID #30 capsule OxyCODONE Immed Rel [Roxicodone 5 MG] 5 mg PO Q6H PRN #28 tablet PRN Reason: Moderate Pain (4-6) Home Medications: Amlodipine Besylate 10 mg PO DAILY 05/01/17 [History] Atorvastatin [Lipitor] 40 mg PO HS 05/01/17 [History] Cetirizine HCl 10 mg PO DAILY 05/01/17 [History] Cholecalciferol (Vitamin D3) [Vitamin D3] 2,000 unit PO DAILY 05/01/17 [History] Escitalopram [Lexapro] 10 mg PO DAILY 05/01/17 [History] Loratadine [Claritin] 10 mg PO DAILY 05/01/17 [History] Losartan/Hydrochlorothiazide [Losartan-Hctz 100-12.5 mg Tab] 1 tab PO DAILY [History] Omeprazole [PriLOSEC] 40 mg PO DAILY 05/01/17 [History] SitaGLIPtin [Januvia] 100 mg PO DAILY 05/01/17 [History] metFORMIN [Glucophage] 500 mg PO BID 05/01/17 [History] Docusate [Colace] 100 mg PO BID #30 capsule 05/04/17 [Rx] OxyCODONE Immed Rel [Roxicodone 5 MG] 5 mg PO Q6H PRN #28 tablet 05/04/17 [Rx] Allergies/Adverse Reactions: 3 Allergy/AdvReac Type Severity Reaction Status Date / Time No Known Allergies Allergy Verified 05/01/17 12:43 - Respiratory Orders Smoking Cessation: Smoking cessation has been advised. For more information, call the [place] Tobacco Quit Line at 3-838-GXAD-NOW. - Ancillary Orders May use pressure relief devices daily prn, May go on RUDY w/family/respon republican w /meds at nurse discretion PRN, May consult with Dentist, Medical Billing Manager, [employer] Services Supervisor PRN - Advance Directives Code Status: Full Code - Mobility Orders Chair - Rehabiliation Orders Rehab Potential: Fair Rehab Orders: Sternal Precautions, ROM Exercises, Evaluation for Physical Therapy, Evaluation for Occupational Therapy - Treatments Skin tear care topically daily PRN per policy, May check for fecal impaction rectally daily PRN, Fleet enema rectally every other day PRN cleansing purposes - Diet Orders No Concentrated Sweets (ADA) CERTIFICATION: I certify that the transfer of the above named patient to an Extended Care Facility is necessary for the continuing treatment of the diagnosis listed. The above information is true and accurate reflection of patient's current condition. Confidential - Redisclosure prohibited without a patient's written consent.
[2017-05-04] MEDS: *HR* OxyCODONE Immed Rel 5 MG TABLET PO PRN (13:33)
--- NOTE | 2017-05-04 13:43 | Event Note ---
Date of Encounter: 05/04/17 Time of Encounter: 11:45 S/P - POD#2 Left proximal humerus ORIF 05/02/17 Patient doing well with no concerns. Pain well controlled. Wearing neutral wedge brace. Continue to keep hand in upright position in brace to decrease swelling. Continue hand and wrist ROM, no shoulder or elbow ROM. NWB to LUE. Continue to wear cam walker boot to left foot for 5th metatarsal fx, WBAT. Will follow up with [facility] in 1 week. DC to [facility] today.
[2017-05-04 16:17] VITALS: BP 142/76
== END 2017-05-04 17:10 | DRG 494 ==
LOC: 3NENU 10:36 → EMEROO 10:36 → SUATTDRO 13:06 → 3NENU 14:25
PROVIDERS: ADMIT Internal Medicine Cardiovascular Disease; ATTEND Internal Medicine